=== PATIENT | male | born 1975 | race Caucasian/White ===

== ENCOUNTER 2020-10-23 19:17 | Emergency (ER) | payer SELFPAY ==
[~2020-10-23] VITALS: Ht 170.2 cm; Wt 78.0 kg
[2020-10-23 19:17] VITALS: BP 173/104
--- NOTE | 2020-10-23 19:17 | NUR ---
[facility] TAKEN TO [facility]IR [facility]
--- NOTE | 2020-10-23 19:30 | NUR ---
PATIENT BIB [facility]P. PATIENT EXAMINED BY . PATIENT MEDICALLY CLEARED AND RELEASED IN CUSTODY IN STABLE CONDITION. ORIGINAL PRE-BOOK FORM GIVEN TO OFFICER SHADY, #[id number]
== END 2020-10-23 19:30 ==
LOC: MED 19:17
DX: I10 Essential (primary) hypertension (principal); Z02.89 Encounter for other administrative examinations
CPT/HCPCS: 99283